=== PATIENT | female | born 1930 | race Caucasian/White ===

== ENCOUNTER → 2016-11-13 | Outpatient (CLI) | payer MEDICARE, OTHER ==
--- NOTE | 2016-11-13 14:41 | PCVCIMAG ---
APPROVED REPORT Study performed: 11/13/2016 13:18:39 EXAM: Comprehensive 2D, Doppler, and color-flow Echocardiogram Patient Location: Echo lab Status: routine Other Information Study Quality: Adequate Indications Pacemaker Hypertension/HDD PAROXYSMAL ATRIAL FIBRILLATION,SICK SINUS SYNDROME, S/P ABLATION 2D Dimensions LVEF(%): 58.00 (>50%) IVSd: 10.29 (7-11mm)LVOT Diam: 21.08 (18-24mm) LVDd: 39.36 mm PWd: 9.63 (7-11mm)Ascending Ao: 31.81 (22-36mm) LVDs: 24.11 (25-40mm) Left Atrium: 34.90 (27-40mm) Aortic Root: 24.99 mm LV Single Plane 4CH: 49.49 % LV Single Plane 2CH: 49.83 %Vasquez's LVEF: 49.66 % Biplane EF: 48.2 % Volumes Left Atrial Volume (Systole) Single Plane 4CH: 71.14 mLSingle Plane 2CH: 49.19 mL LA ESV Index: 35.00 mL/m2 Aortic Valve AoV Peak Joaquin.: 1.14 m/s AO Peak Gr.: 5.23 mmHgLVOT Max P.56 mmHg LVOT Max V: 0.94 m/s ALANA Vmax: 2.88 cm2 AI Vmax: 3.72 m/s AI Aiken: 2.08 m/s2 AI PHT: 553.43 ms Mitral Valve E/A Ratio: 1.2 MV Decel. Time: 156.71 ms MV E Max Joaquin.: 0.60 m/s MV A Joaquin.: 0.49 m/s MV PHT: 45.45 ms IVRT: 78.43 ms TDI E/Lateral E': 10.00E/Medial E': 12.00 Medial E' Joaquin.: 0.05 m/s Lateral E' Joaquin.: 0.06 m/s Pulmonary Valve PV Peak Joaquin.: 0.81 m/sPV Peak Gr.: 2.63 mmHg Pulmonary Vein P Vein S: 0.39 m/sP Vein A: 0.31 m/s P Vein D: 0.36 m/sP Vein A Dur.: 62.3 msec P Vein S/D Ratio: 1.08 Tricuspid Valve TR Peak Joaquin.: 3.01 m/s TR Peak Gr.: 36.17 mmHg TV Vmax: 0.65 m/sPA Pressure: 43.00 mmHg Left Ventricle The left ventricle is normal size. There is normal LV segmental wall motion. There is normal left ventricular wall thickness. Left ventricular systolic function is normal. LVEF is 50-55%. The left ventricular diastolic function is normal. Right Ventricle The right ventricle is normal size. The right ventricular systolic function is normal. Atria Left atrium is mildly dilated. The right atrium size is normal. Pacemaker lead is present in the right atrium. Aortic Valve The aortic valve is trileaflet, mildly sclerotic Mild aortic regurgitation. There is no aortic valvular stenosis. Mitral Valve The mitral valve is normal in structure. Mild mitral regurgitation. No evidence of mitral valve stenosis. Tricuspid Valve The tricuspid valve is normal in structure. Moderate to severe tricuspid regurgitation with a PA pressure of 43mmHg.. Pulmonic Valve The pulmonary valve is normal in structure. Trace pulmonic regurgitation. Great Vessels The aortic root is normal in size. The ascending aorta is normal in size. Aortic arch is not well visualized. IVC is normal in size and collapses with >50% inspiration Pericardium There is no pericardial effusion. There is no pleural effusion. <Conclusion> Left ventricular systolic function is normal. There is normal LV segmental wall motion. LVEF is 50-55%. Left atrium is mildly dilated. The aortic valve is trileaflet, mildly sclerotic. Mild aortic regurgitation, no stenosis The mitral valve is normal in structure. Mild mitral regurgitation. Pulmonary artery pressure of 35mmHg There is no pericardial effusion.
== END | disposition home or self-care (01) ==
LOC: PCVCIMAG 13:04
PROVIDERS: ATTEND Internal Medicine
DX: I35.1 Nonrheumatic aortic (valve) insufficiency (principal); I34.0 Nonrheumatic mitral (valve) insufficiency; I37.1 Nonrheumatic pulmonary valve insufficiency; I07.1 Rheumatic tricuspid insufficiency; I49.5 Sick sinus syndrome; I48.0 Paroxysmal atrial fibrillation; I10 Essential (primary) hypertension; E78.5 Hyperlipidemia, unspecified; G47.33 Obstructive sleep apnea (adult) (pediatric); Z95.0 Presence of cardiac pacemaker; Z92.29 Personal history of other drug therapy; Z87.01 Personal history of pneumonia (recurrent); Z90.710 Acquired absence of both cervix and uterus; Z79.899 Other long term (current) drug therapy; Z88.8 Allergy status to other drugs, medicaments and biological substances
CPT/HCPCS: 80061; 93005; 93280; 93306; G0463

== ENCOUNTER → 2017-11-06 | Outpatient (CLI) | payer MEDICARE, OTHER ==
--- NOTE | 2017-11-06 11:02 | PCVCIMAG ---
APPROVED REPORT Study performed: 11/06/2017 10:12:57 EXAM: Comprehensive 2D, Doppler, and color-flow Echocardiogram Patient Location: Echo lab Status: routine BSA: 1.91 HR: 80 bpmBP: 122/82 mmHg Rhythm: NSR Other Information Study Quality: Adequate Risk Factors: Cardiac Risk Factors: HTN, Hyperlipidemia Indications Atrial Fibrillation Pacemaker 2D Dimensions LVEF(%): 59.34 (>50%) IVSd: 12.85 (7-11mm)LVOT Diam: 19.00 (18-24mm) LVDd: 34.41 mm PWd: 12.79 (7-11mm)Ascending Ao: 32.68 (22-36mm) LVDs: 23.86 (25-40mm) Left Atrium: 36.11 (27-40mm) Aortic Root: 27.19 mm LV Single Plane 4CH: 43.13 % LV Single Plane 2CH: 44.00 %Vasquez's LVEF: 43.56 % Biplane EF: 39.7 % Volumes Left Atrial Volume (Systole) Single Plane 4CH: 61.29 mLSingle Plane 2CH: 33.60 mL LA ESV Index: 26.00 mL/m2 Aortic Valve AoV Peak Joaquin.: 1.25 m/s AO Peak Gr.: 6.25 mmHgLVOT Max P.27 mmHg LVOT Max V: 0.75 m/s ALANA Vmax: 1.66 cm2 AI Vmax: 4.02 m/s AI Rooks: 2.02 m/s2 AI PHT: 576.12 ms Mitral Valve E/A Ratio: 0.9 MV Decel. Time: 188.57 ms MV E Max Joaquin.: 0.68 m/s MV A Joaquin.: 0.75 m/s MV PHT: 54.69 ms IVRT: 64.59 ms TDI E/Lateral E': 11.33E/Medial E': 13.60 Medial E' Joaquin.: 0.05 m/s Lateral E' Joaquin.: 0.06 m/s Pulmonary Valve PV Peak Joaquin.: 0.72 m/sPV Peak Gr.: 2.08 mmHg Pulmonary Vein P Vein S: 0.31 m/sP Vein A: 0.21 m/s P Vein D: 0.37 m/sP Vein A Dur.: 131.5 msec P Vein S/D Ratio: 0.84 Tricuspid Valve TR Peak Joaquin.: 2.49 m/sRAP Estimate: 7.00 mmHg TR Peak Gr.: 24.85 mmHg PA Pressure: 32.00 mmHg Left Ventricle The left ventricle is normal size. There is normal LV segmental wall motion. Mild concentric left ventricular hypertrophy. Left ventricular systolic function is normal. The left ventricular ejection fraction is within the normal range. Discordant distal septal motion probably from RV pacing LVEF is 60%. Grade I - abnormal relaxation pattern. Right Ventricle The right ventricle is normal size. The right ventricular systolic function is normal. Atria The left atrium size is normal. The right atrium size is normal. Aortic Valve Trileaflet aortic valve, mildly sclerotic Mild aortic regurgitation. There is no aortic valvular stenosis. Mitral Valve The mitral valve is normal in structure. Mild mitral regurgitation. No evidence of mitral valve stenosis. Tricuspid Valve The tricuspid valve is normal in structure. Mild tricuspid regurgitation. Pulmonary artery pressure is 32 mmHg. Pulmonic Valve The pulmonary valve is normal in structure. Mild pulmonic regurgitation. Great Vessels The aortic root is normal in size. IVC is normal in size and collapses with >50% inspiration Pericardium There is no pericardial effusion. <Conclusion> The left ventricular ejection fraction is within the normal range. Discordant distal septal motion probably from RV pacing LVEF is 60%. Mild diastolic dysfunction Trileaflet aortic valve, mildly sclerotic. Mild aortic regurgitation, no stenosis. The mitral valve is normal in structure. Mild mitral regurgitation. Mild tricuspid regurgitation. Pulmonary artery pressure is 32 mmHg. There is no pericardial effusion.
== END | disposition home or self-care (01) ==
LOC: PCVCIMAG 10:22
PROVIDERS: ATTEND Internal Medicine
DX: I48.0 Paroxysmal atrial fibrillation (principal); G47.33 Obstructive sleep apnea (adult) (pediatric); I49.5 Sick sinus syndrome; I10 Essential (primary) hypertension; E78.5 Hyperlipidemia, unspecified; Z92.29 Personal history of other drug therapy; Z95.0 Presence of cardiac pacemaker
CPT/HCPCS: 80061; 93005; 93280; 93306; G0463